=== PATIENT | female | born 1995 | race Caucasian/White ===

== ENCOUNTER 2022-05-23 11:56 | Emergency (ER) | payer SELFPAY ==
[~2022-05-23] VITALS: Ht 165.1 cm; Wt 54.4 kg
--- NOTE | 2022-05-23 12:31 | NUR ---
BIBS C/O BURNING WHEN URINATING X2DAYS, STARTED AFTER EPISODES OF DIARRHEA. THE PATIENT DENIES HAVING FEVER/CHILLS. IN ROOM AIR AND DENIES SOB. RESPIRATION REGULAR AND UNLABORED. WILL CONTINUE TO MONITOR THE PATIENT.
--- NOTE | 2022-05-23 12:40 | NUR ---
URINE COLLECTED AND SENT TO LAB
[2022-05-23] MEDS ORDERED: CEFU500T66 PO (14:04)
[2022-05-23 14:14] LABS: BILIRUBIN,URINE NEGATIVE (NEGATIVE); COLOR,URINE YELLOW (YELLOW); LEUKOCYTE ESTERASE ,URINE TRACE (NEGATIVE); NITRITE, URINE POSITIVE (NEGATIVE); PROTEIN,URINE NEGATIVE (NEGATIVE); UGLUCOSE NEGATIVE (NEGATIVE)
[2022-05-23 14:17] VITALS: BP 117/69
--- NOTE | 2022-05-23 14:17 | NUR ---
Patient discharged to home in stable condition. Written and verbal after care instructions given. Patient verbalizes understanding of instruction.
[2022-05-23 14:30] LABS: WBC,URINE 51-80 /HPF (0-3)
[2022-05-23 14:31] LABS: BACTERIA,URINE Many /HPF (None Seen); RBC,URINE 0-2 /HPF (0-2)
[2022-05-23 14:32] LABS: SQUAMOUS EPITHELIAL CELL,UR Few /HPF (None Seen)
== END 2022-05-23 14:36 | disposition home or self-care (01) ==
LOC: ER 12:30
DX: N39.0 Urinary tract infection, site not specified (principal)
CPT/HCPCS: 81001; 87086-TC; 87186-TC

== ENCOUNTER 2022-07-06 00:55 | Emergency (ER) | payer SELFPAY ==
[~2022-07-06] VITALS: Ht 162.6 cm; Wt 54.4 kg
[~2022-07-06 00:55] MED LIST: CEFU500T66 PO
--- NOTE | 2022-07-06 01:45 | NUR ---
BIBS C/O R SIDE ABD PAIN X YESTERDAY. PATIENT IS AAOX4. PLACED COMFORTABLY IN BED. VITALS CHECKED.
[2022-07-06] MEDS ORDERED: ONDANSETRON HCL/PF 4 MG/2 ML VIAL ONE (01:50)
--- NOTE | 2022-07-06 01:50 | NUR ---
URINE SAMPLE COLLECTED AND SENT TO LAB
[2022-07-06] MEDS ORDERED: MORPHINE SULFATE INJ 4 MG/ML DISP.SYRIN ONE (01:51)
[2022-07-06] MEDS ORDERED: MORPHINE SULFATE INJ 2 MG/ML DISP.SYRIN IV ONE ×2 (02:00→05:00)
[2022-07-06] MEDS ORDERED: ONDANSETRON HCL/PF 4 MG/2 ML VIAL IVP ONE (02:00)
[2022-07-06] MEDS ORDERED: IV NS 0.9% 500 ML BAG IV ONE (02:00)
--- NOTE | 2022-07-06 02:00 | NUR ---
IV CANNULA G18 INSERTED ON RIGHT AC. BLOOD DRAWN AND SENT TO LAB
[2022-07-06 02:40] LABS: BASOPHILS % (AUTO) 0.3 % (0.0-2.0); EOSINOPHILS % (AUTO) 0.9 % (0.0-6.0); HEMATOCRIT 38 % (33-45); HEMOGLOBIN 12.7 g/dL (11.5-14.8); LYMPHOCYTES # (AUTO) 2.1 K/uL (0.8-4.8); LYMPHOCYTES % (AUTO) 19.6 % (20.0-44.0); MEAN CORPUSCULAR HGB CONC 34 g/dl (31.0-36.0); MEAN CORPUSCULAR VOLUME 85 fL (82-100); MONOCYTES # (AUTO) 0.7 K/uL (0.1-1.30); MONOCYTES % (AUTO) 6.6 % (2.0-12.0); NEUTROPHILS # (AUTO) 7.8 K/uL (1.8-8.9); NEUTROPHILS % (AUTO) 72.6 % (43.0-81.0); PLATELET COUNT (AUTO) 235 K/uL (150-450); RED BLOOD CELL COUNT(AUTO) 4.48 MIL/uL (4.0-5.2); WHITE BLOOD COUNT (AUTO) 10.7 K/uL (4.3-11.0)
[2022-07-06 02:44] LABS: BILIRUBIN,URINE NEGATIVE (NEGATIVE); COLOR,URINE DARK YELLOW (YELLOW); LEUKOCYTE ESTERASE ,URINE NEGATIVE (NEGATIVE); NITRITE, URINE NEGATIVE (NEGATIVE); PH,URINE 7.5 (5.0-8.0); PROTEIN,URINE NEGATIVE (NEGATIVE); UGLUCOSE NEGATIVE (NEGATIVE)
[2022-07-06 02:56] LABS: BACTERIA,URINE Few /HPF (None Seen); RBC,URINE 0-2 /HPF (0-2); SQUAMOUS EPITHELIAL CELL,UR Few /HPF (None Seen)
[2022-07-06 03:05] LABS: CALCIUM, SERUM 8.6 mg/dL (8.5-10.1); CREATININE 0.8 mg/dL (0.6-1.3); POTASSIUM 3.6 mmol/L (3.5-5.1)
[2022-07-06 03:17] LABS: ALBUMIN 4.3 g/dL (3.4-5.0); BILIRUBIN,DIRECT 0.3 mg/dL (0.0-0.2); BILIRUBIN,TOTAL 2.1 mg/dL (0.2-1.0)
[2022-07-06] MEDS ORDERED: MORPHINE SULFATE INJ 2 MG/ML DISP.SYRIN ONE (04:40)
--- NOTE | 2022-07-06 05:15 | NUR ---
PATIENT IS ASLEEP BUT AROUSABLE. PAIN IN 2/10. RESULTS OF IMAGING STILL NOT OUT. PT MADE AWARE.
--- NOTE | 2022-07-06 07:29 | NUR ---
REPORT GIVEN TO MARGO OAKLEY
--- NOTE | 2022-07-06 08:18 | NUR ---
IV removed. Catheter intact and site benign. Pressure and 4x4 applied to site. No bleeding noted.Patient discharged to home in stable condition. Written and verbal after care instructions given. Patient verbalizes understanding of instruction.
[2022-07-06 08:22] VITALS: BP 121/71
== END 2022-07-06 08:25 | disposition home or self-care (01) ==
LOC: EDUNIT# 00:55 → ER 01:02
DX: R10.11 Right upper quadrant pain (principal)
CPT/HCPCS: 99285; 96374; 76705; 96375; 96376; 85025; 80048; 83690; 80076; 84703; 81001; 36415; J2270 ×2; J2405; J7040